=== PATIENT | female | born 1990 | race African-American/Black ===

== ENCOUNTER 2025-04-15 19:55 | Emergency (ER) | payer OTHER ==
[~2025-04-15] VITALS: Ht 165.1 cm; Wt 75.0 kg
[2025-04-15 20:06] VITALS: BP 107/77; PULSE 77; RESP 16; TEMP 36.7; O2SAT 100
[2025-04-15] MEDS ORDERED: ONDANSETRON 4MG ODT PO ONE (20:45)
[2025-04-15] MEDS ORDERED: FAMOTIDINE 20MG TABLET PO ONE (20:45)
[2025-04-15] MEDS ORDERED: MAGNESIUM/ALUMINUM HYDROXIDE/SIMETHICONE 30ML UDC PO ONE (20:45)
== END 2025-04-15 20:56 | disposition left against medical advice (07) ==
LOC: ER 19:55
DX: R11.2 Nausea with vomiting, unspecified (principal); J45.909 Unspecified asthma, uncomplicated; Z53.21 Procedure and treatment not carried out due to patient leaving prior to being seen by health care provider